=== PATIENT | male | born 1980 | race American Indian/Alaskan Native ===

== ENCOUNTER → 2020-03-20 | Outpatient (CLI) | payer OTHER ==
--- NOTE | 2020-03-20 15:55 | US ---
EXAMINATION TYPE: US venous doppler duplex LE DATE OF EXAM: 03/20/2020 2:32 PM COMPARISON: LOWER EXTREMITY VENOUS INSUFFICIENCY CLINICAL HISTORY: E11.621 Type 2 dm foot ulcer. SIDE PERFORMED: 1) Color flow is present and patency is documented in the following vessels. No DVT or SVT is noted . EIV Common Femoral Vein Deep Femoral Vein Femoral Vein Popliteal Vein Proximal Calf Veins Greater Saph Vein Upper Small Saph Vein 2) There is venous reflux noted at the following venous levels: Left Common Femoral Vein to the dis phillip Popliteal Vein. 3) Incompetent perforators are noted at these levels: IMPRESSION: Venous insufficiency left lower extremity
--- NOTE | 2020-03-21 12:07 | P.ARTDOP ---
Arterial Doppler LOWER EXTREMITY ARTERIAL DOPPLER: DATE OF SERVICE: 03/20/2020 Reason for study: Ulcer left foot. Doppler waveforms: Multiphasic bilaterally throughout. Pulse volume recording: []. Pressure gradients: None. Ankle-brachial indices: Greater than 1 bilaterally. Toe brachial indices: 0.76 on the right, 0.87 on the left Impression: Normal study.
== END | disposition home or self-care (01) ==
LOC: RADUSWWP 13:46
PROVIDERS: ATTEND Family Medicine
DX: I87.2 Venous insufficiency (chronic) (peripheral) (principal); E11.621 Type 2 diabetes mellitus with foot ulcer; L97.525 Non-pressure chronic ulcer of other part of left foot with muscle involvement without evidence of necrosis; L97.111 Non-pressure chronic ulcer of right thigh limited to breakdown of skin; K70.2 Alcoholic fibrosis and sclerosis of liver
CPT/HCPCS: 93922; 93923; 93970

== ENCOUNTER → 2020-06-07 | Outpatient (CLI) | payer OTHER ==
--- NOTE | 2020-06-07 13:34 | US ---
EXAMINATION TYPE: US liver DATE OF EXAM: 06/07/2020 COMPARISON: NONE CLINICAL HISTORY: 39-year-old male K74.60 Cirrhosis of liver. Abnormal liver function. Patient states ETOH abuse TECHNIQUE: Multiple sonographic images of the right upper quadrant are obtained. FINDINGS: EXAM MEASUREMENTS: Liver Length: 21.6 cm Gallbladder Wall: 0.5 cm CBD: 0.7 cm Right Kidney: 11.7 x 5.2 x 5.0 cm Fashion Buyer notes: Large pt body habitus, limited exam Pancreas: Obscured by bowel gas Liver: Enlarged, heterogeneous. Prominent echogenic band appears to correspond to the falciform liga ment in the medial left lobe. However, other subtle patchy areas of echogenicity are present, for exa mple, on page 7 and 8. Overall limited visualization of the liver due to rib and bowel shadowing. Gallbladder: Two gallstones measuring up to 1.7 cm. There is mild circumferential wall thickening bu t no surrounding fluid or hydropic change. Evidence for sonographic Mcconnell's sign: No CBD: Mildly dilated Right Kidney: wnl IMPRESSION: 1. Limited exam due to large patient body habitus. 2. Hepatomegaly (21.6 cm) with heterogeneous liver parenchyma, compatible with underlying nonspecific hepatocellular disease. There is an echogenic band along the medial left liver lobe that likely amber esponds to the falciform ligament. However, in addition, vague echogenic areas are present that could be artifact. Liver MRI can further evaluate. 3. Gallbladder wall thickening and underlying gallstones measuring 1.7 cm. No abnormal distention, Mu rphy's sign, or surrounding fluid. Correlate for chronic cholecystitis. 4. Bile duct is mildly dilated at 7 mm. Correlate with alkaline phosphatase and bilirubin levels to e xclude early biliary obstruction.
== END | disposition home or self-care (01) ==
LOC: RADUSWWP 11:12
PROVIDERS: ATTEND Internal Medicine Gastroenterology
DX: R16.0 Hepatomegaly, not elsewhere classified (principal); R93.2 Abnormal findings on diagnostic imaging of liver and biliary tract; K80.20 Calculus of gallbladder without cholecystitis without obstruction; K83.8 Other specified diseases of biliary tract
CPT/HCPCS: 76705

== ENCOUNTER 2023-05-23 18:06 | Emergency (ER) | payer OTHER ==
[2023-05-23 18:40] LABS: HCT 34.6 % (39.0-53.0); HGB 11.3 gm/dL (13.0-17.5); Hypochromasia Slight; MCHC 32.6 g/dL (31.0-37.0); MCV 85.8 fL (80.0-100.0); Platelet Count 139 k/uL (150-450); Poikilocytosis Slight; RBC 4.03 m/uL (4.30-5.90); RDW 14.8 % (11.5-15.5)
[2023-05-23 18:50] LABS: African American GFR (CKD) >90 (>60 ml/min/1.73 sqM); Anion Gap 9 mmol/L; Blood Urea Nitrogen 14 mg/dL (9-20); Calcium 8.9 mg/dL (8.4-10.2); Carbon Dioxide 22 mmol/L (22-30); Chloride 107 mmol/L (98-107); Glucose 172 mg/dL (74-99); Non-African American GFR(CKD) >90 (>60 ml/min/1.73 sqM); Potassium 4.2 mmol/L (3.5-5.1); Sodium 138 mmol/L (137-145)
[2023-05-23 19:44] VITALS: RESP 18; TEMP 97.9
--- NOTE | 2023-05-23 20:01 | XR ---
EXAMINATION TYPE: XR foot limited RT DATE OF EXAM: 05/23/2023 6:54 PM CLINICAL INDICATION:Male, 42 years old with history of tarsal amputation/surgery recent. eval for ost eo; [facility] COMPARISON: TECHNIQUE: 2 views right foot. FINDINGS: Limited with only 2 projections. However, there appears to be generalized bony demineralization and m ild degenerative changes. Status post amputation of the mid fifth metatarsal with surgical appearing margin. No osseous destructive process or aggressive periostitis is seen. Mild soft tissue swelling s uggested at the distal aspect of the fifth metatarsal stump. There are multiple soft tissue oren. No unexpected soft tissue gas. IMPRESSION: Postoperative changes without radiographic evidence to suggest osteomyelitis. Follow-up as clinically warranted.
[2023-05-23] MEDS ORDERED: CEPHALEXIN 500MG STARTER PACK 4 CAP BTL PO STA (20:24)
[2023-05-23] MEDS ORDERED: SULFAMETH-TMP DS STARTER PACK 2 TAB BTL PO STA (20:24)
[2023-05-23] MEDS ORDERED: CEPHALEXIN 500 MG CAP PO STA (20:24)
[2023-05-23] MEDS ORDERED: SULFAMETHOX-TMP 800-160MG 1 EACH TAB PO STA (20:24)
--- NOTE | 2023-05-23 20:26 | ED ---
General Adult HPI - General Chief complaint: Extremity Problem,Nontraumatic Stated complaint: infection in foot Time Seen by Provider: 05/23/23 18:17 Source: patient, RN notes reviewed, old records reviewed Mode of arrival: EMS Limitations: no limitations - History of Present Illness Initial comments: Patient is a 42-year-old male with past medical history remarkable for recent amputation in skin graft placement for right foot infection. This was done sometime in April. Has been improving. No longer has a wound VAC. VAC was removed last Thursday and nursing staff was concerned because the wench with the coloration on the foot was secondary to infection or not want him to be reevaluated. He has no other acute complaints at this time. Denies fever, chills. Denies any significant discharge. Has good granulation tissue. Is receiving good care keeping the wound clean. No erythema. No edema. No other acute complaints. He was a prior diabetic but now A1c less than the patient is 6. His no other acute complaints at this time. Presents for further evaluation after they discussed the case with his clay products machine operator who recommended evaluation at the ER. Surgery [facility]. - Related Data Allergies Allergy/AdvReac Type Severity Reaction Status Date / Time No Known Allergies Allergy Verified 05/23/23 18:18 Review of Systems ROS Statement: Those systems with pertinent positive or pertinent negative responses have been documented in the HPI. Review of Systems: CONST: Denies fever EYES: Denies blurry vision ENT: Denies nasal congestion C/V: Denies Chest pain RESP: Denies shortness of breath GI: Denies abdominal pain : Denies dysuria SKIN: Endorses right foot surgical wound MSK: Denies joint pain. NEURO: Denies headache ROS Other: All systems not noted in ROS Statement are negative. Past Medical History Past Medical History: Diabetes Mellitus, Hypertension Additional Past Medical History / Comment(s): diabetic neuropathy esphogeal varices, Past Surgical History: Orthopedic Surgery Additional Past Surgical History / Comment(s): toe amputation General Exam - General Exam Comments Initial Comments: General: Appears in no acute distress. HEAD: Normal with no signs of head trauma. EYES: PERRLA, EOMI, conjunctiva normal, no discharge. ENT: Hearing grossly intact, normal oropharynx. RESPIRATORY: Clear breath sounds bilaterally. No wheezes, rales, or rhonchi. C/V: Regular rate and rhythm. S1 and S2 auscultated, peripheral pulses 2+ and intact throughout ABD: Abd is soft, nontender, nondistended EXT: Normal range of motion, no obvious acute deformity SKIN: Surgical wound appears well healing. Good granulation tissue. No obvious purulent discharge. No erythema. No edema. Appears well healing. NEURO: Alert and oriented 4. Limitations: no limitations Course Vital Signs 05/23/23 05/23/23 05/23/23 18:10 19:30 20:53 Temperature 98.2 F 97.9 F Pulse Rate 77 80 76 Respiratory 20 18 18 Rate Blood Pressure 180/92 143/79 162/79 O2 Sat by Pulse 97 97 98 Oximetry Medical Decision Making - Medical Decision Making Was pt. sent in by a medical professional or institution (, PA, CHANGE MANAGEMENT SPECIALIST, urgent care, hospital, or retirement...) When possible be specific @ -Presents from [facility]. Sent for evaluation of this wound. Did you speak to anyone other than the patient for history (EMS, parent, family, police, friend...)? What history was obtained from this source @ -No Did you review nursing and triage notes (agree or disagree)? Why? @ -I reviewed and agree with nursing and triage notes Were old charts reviewed (outside hosp., previous admission, EMS record, old EKG, old radiological studies, urgent care reports/EKG's, retirement records)? Report findings @ -No old charts were reviewed Differential Diagnosis (chest pain, altered mental status, abdominal pain women, abdominal pain men, vaginal bleeding, weakness, fever, dyspnea, syncope, headache, dizziness, GI bleed, back pain, seizure, CVA, palpatations, mental health, musculoskeletal)? @ -Cellulitis, postop check, postop wound infection. This list not all inclusive. EKG interpreted by me (3pts min.). @ -None done X-rays interpreted by me (1pt min.). @ -X-ray of the right foot reveals no evidence of a osteomyelitis CT interpreted by me (1pt min.). @ -None done U/S interpreted by me (1pt. min.). @ -None done What testing was considered but not performed or refused? (CT, X-rays, U/S, labs)? Why? @ -None What meds were considered but not given or refused? Why? @ -None Did you discuss the management of the patient with other professionals (professionals i.e. , PA, CHANGE MANAGEMENT SPECIALIST, lab, RT, psych nurse, rn social work, chip bin conveyor tender, teacher, transit police officer, manager case)? Give summary @ -No Was smoking cessation discussed for >3mins.? @ -No Was critical care preformed (if so, how long)? @ -No Were there social determinants of health that impacted care today? How? (Homelessness, low income, unemployed, alcoholism, drug addiction, transportation, low edu. Level, literacy, decrease access to med. care, long-term, rehab)? @ -No Was there de-escalation of care discussed even if they declined (Discuss DNR or withdrawal of care, Hospice)? DNR status @ -No What co-morbidities impacted this encounter? (DM, HTN, Smoking, COPD, CAD, Cancer, CVA, ARF, Chemo, Hep., AIDS, mental health diagnosis, sleep apnea, morb id obesity)? @ -None Was patient admitted / discharged? Hospital course, mention meds given and route, prescriptions, significant lab abnormalities, going to OR and other pertinent info. @ -Patient presents from nursing facility for evaluation of his foot wound. Surgery was over a month ago. Wound VAC was recently removed and he says rickey canchola last week. Does have follow-up with his clay products machine operator on Thursday. Is currently Thursday evening. His no symptoms of infection at this time. We'll obtain basic labs, as well as an x-ray of the foot. He is in no distress. Declines analgesic medications. Vital signs within acceptable limits. Afebrile. Exam unremarkable. Appears to be well-healing without any obvious source of infection. Labs are within acceptable limits. Imaging unremarkable. Discussed results with the patient. He will be empirically placed on antibiotics until his follow-up on Thursday. Patient was in agreement this plan. He'll be discharged home with starter packs for Bactrim as well as Keflex. I will provide the patient with a prescription for Bactrim, Keflex starter packs. I instructed the patient to follow up with their PCP in the next 1-3 days. I explained that the patient should return to the emergency department if they experience any worsening symptoms. Strict return precautions were discussed with the patient. The patient expressed understanding of these instructions. I answered all questions that the patient had. The patient was discharged home in good condition with their prescriptions and follow up information. Undiagnosed new problem with uncertain prognosis? @ -No Drug Therapy requiring intensive monitoring for toxicity (Heparin, Nitro, Insulin, Cardizem)? @ -No Were any procedures done? @ -No Diagnosis/symptom? @ -Post operative surgical site check Acute, or Chronic, or Acute on Chronic? @ -Acute Uncomplicated (without systemic symptoms) or Complicated (systemic symptoms)? @ -Uncomplicated Side effects of treatment? @ -No Exacerbation, Progression, or Severe Exacerbation? @ -No Poses a threat to life or bodily function? How? (Chest pain, USA, MS, pneumonia, PE, COPD, DKA, ARF, appy, cholecystitis, CVA, Diverticulitis, Homicidal, Suicid al, threat to staff... and all critical care pts) @ -Unlikely - Lab Data Result diagrams: 05/23/23 18:21 05/23/23 18:21 Lab Results 05/23/23 05/23/23 05/23/23 Range/Units 18:21 18:21 18:21 WBC 3.0 L (3.8-10.6) k/uL RBC 4.03 L (4.30-5.90) m/uL Hgb 11.3 L (13.0-17.5) gm/dL Hct 34.6 L (39.0-53.0) % MCV 85.8 (80.0-100.0) fL MCH 28.0 (25.0-35.0) pg MCHC 32.6 (31.0-37.0) g/dL RDW 14.8 (11.5-15.5) % Plt Count 139 L (150-450) k/uL MPV 9.0 Hypochromasia Slight Poikilocytosis Slight Sodium 138 (137-145) mmol/L Potassium 4.2 (3.5-5.1) mmol/L Chloride 107 (98-107) mmol/L Carbon Dioxide 22 (22-30) mmol/L Anion Gap 9 mmol/L BUN 14 (9-20) mg/dL Creatinine 0.62 L (0.66-1.25) mg/dL Est GFR (CKD-EPI)AfAm >90 (>60 ml/min/1.73 sqM) Est GFR (CKD-EPI)NonAf >90 (>60 ml/min/1.73 sqM) Glucose 172 H (74-99) mg/dL Plasma Lactic Acid Nikita 1.2 (0.7-2.0) mmol/L Calcium 8.9 (8.4-10.2) mg/dL Disposition Clinical Impression: Post-operative complication Disposition: HOME SELF-CARE Condition: Good Additional Instructions: Follow up with clay products machine operator on thursday. Is patient prescribed a controlled substance at d/c from ED?: No Referrals: None,Stated [Primary Care Provider] - 1-2 days Time of Disposition: 20:20
[2023-05-23 21:00] VITALS: BP 162/79; PULSE 76
== END 2023-05-23 22:01 | disposition home or self-care (01) ==
LOC: EC 18:06
DX: L76.82 Other postprocedural complications of skin and subcutaneous tissue (principal); E11.40 Type 2 diabetes mellitus with diabetic neuropathy, unspecified; I10 Essential (primary) hypertension
CPT/HCPCS: 36415; 80048; 83605; 85027; 99284